=== PATIENT | male | born 1950 | race Caucasian/White ===

== ENCOUNTER 2018-08-06 19:35 | Emergency (ER) | payer MEDICARE ==
[~2018-08-06] VITALS: Ht 188 cm; Wt 118.8 kg
[2018-08-06 20:15] LABS: Calcium, Ionized (POC) 1.13 mmol/L (1.10-1.46); Chloride (POC) 100 mmol/L (98-108); Glucose (ISTAT POC) 97 mg/dL (70-99); Hemoglobin (POC) 13.3 g/dL (13.5-17.5); Sodium (POC) 137 mmol/L (135-148); Total CO2 (POC) 24 mmol/L (21-32)
[2018-08-06] MEDS ORDERED: Lisinopril2.5 MG (20:27)
== END 2018-08-06 20:45 | disposition home or self-care (01) ==
LOC: ER 19:35
PROVIDERS: Physician Assistant
DX: R55 Syncope and collapse (principal)
CPT/HCPCS: 80047; 85014; 93005; 93010; 99284-25

== ENCOUNTER → 2019-08-04 | Outpatient (CLI) | payer MEDICARE ==
[~2019-08-04] MED LIST: Lisinopril2.5 MG
== END | disposition home or self-care (01) ==
LOC: PLD 07:22 → LAB SHORT 07:22
DX: L30.9 Dermatitis, unspecified (principal)
CPT/HCPCS: 88305; 88312

== ENCOUNTER → 2020-02-14 | Outpatient (CLI) | payer MEDICARE | END | disposition home or self-care (01) | LOC: LAB SHORT 13:18 → PLD 13:18 | DX: D04.61 Carcinoma in situ of skin of right upper limb, including shoulder (principal) | CPT/HCPCS: 88305 ==

== ENCOUNTER → 2021-02-11 | Outpatient (CLI) | payer MEDICARE | LOC: LAB SHORT 13:03 → PLD 13:03 | DX: D22.5 Melanocytic nevi of trunk (principal) | CPT/HCPCS: 88305 ==

== ENCOUNTER → 2021-09-10 | Outpatient (CLI) | payer MEDICARE | END | disposition home or self-care (01) | LOC: LAB 15:11 → LAB SHORT 15:11 | DX: L98.8 Other specified disorders of the skin and subcutaneous tissue (principal) | CPT/HCPCS: 88305; 88312 ==

== ENCOUNTER 2024-11-10 17:59 | Inpatient (IN) | payer MEDICARE ==
[~2024-11-10] VITALS: Ht 190.5 cm; Wt 104.0 kg
[~2024-11-10 17:59] MED LIST changes: +ELIQUIS5 M2 PO; -Lisinopril2.5 MG; +Lisinopril2.5 MG PO
[2024-11-10 20:01] LABS: BASOPHILS ABSOLUTE AUTO 0.03 K/mm3 (0.00-0.23); BASOPHILS PERCENT AUTO 0 % (0-2); EOSINOPHILS ABSOLUTE AUTO 0.02 K/mm3 (0.00-0.68); EOSINOPHILS PERCENT AUTO 0 % (0-6); Hematocrit 40.8 % (37.0-53.0); Hemoglobin 14.3 g/dL (13.5-17.5); IMMATURE GRAN ABSOLUTE AUTO 0.06 K/mm3 (0.00-0.10); IMMATURE GRAN PERCENT AUTO 1 % (0-1); LYMPHOCYTES ABSOLUTE AUTO 0.93 K/mm3 (0.84-5.20); LYMPHOCYTES PERCENT AUTO 8 % (21-46); MONOCYTES ABSOLUTE AUTO 0.85 K/mm3 (0.16-1.47); MONOCYTES PERCENT AUTO 7 % (4-13); Mean Corpuscular HGB 31.7 pg (26.0-34.0); Mean Corpuscular Volume 91 fL (80-100); NEUTROPHILS ABSOLUTE AUTO 10.44 K/mm3 (1.96-9.15); NEUTROPHILS PERCENT AUTO 85 % (41-73); Platelet Count 199 K/mm3 (150-400); RDW Coefficient Variation 13.1 % (11.7-14.2); RDW Standard Deviation 43.4 fL (35.1-46.3); Red Blood Cell Count 4.51 M/mm3 (4.30-5.90); White Blood Cell Count 12.33 K/mm3 (4.00-11.30)
[2024-11-10 20:23] LABS: Source, Urine Clean Catch
[2024-11-10 20:23] LABS: Albumin, Blood 3.6 g/dL (3.4-5.0); Albumin/Globulin Ratio 0.8 (0.8-1.8); Bilirubin, Total 0.9 mg/dL (0.1-1.0); Bun/Creatinine Ratio 21.7 (12.0-20.0); Calcium, Blood 9.8 mg/dL (8.5-10.1); Creatinine, Blood 0.78 mg/dL (0.60-1.20); Globulin, Blood 4.4 g/dL (2.2-4.0); Potassium, Blood 4.5 mmol/L (3.5-5.5)
[2024-11-10 20:32] LABS: Appearance, Urine Clear (Clear); Bilirubin, Urine Neg (Neg); Blood, Urine 2+ (Neg); Color, Urine Yellow (P-Yellow); Glucose Qualitative, Urine Neg (Neg); Ketones, Urine 1+ (Neg); Leukocyte Esterase, Urine Neg (Neg); Nitrite, Urine Neg (Neg); Protein, Urine 1+ (Neg); Urobilinogen, Urine NORM (Normal)
[2024-11-10 20:42] LABS: Amorphous Light (0-Heavy); Bacteria Few /hpf; Squamous Epithelial Cells Rare /hpf (Few); White Blood Cells, Urine 0-2 /hpf (0-5)
[2024-11-10 21:36] LABS: International Normalized Ratio 1.06; Prothrombin Time Results 11.3 Sec (9.7-11.5)
[2024-11-10] MEDS ORDERED: Methocarbamol 500 MG Tab PO ONE (22:40)
[2024-11-10] MEDS ORDERED: Ketorolac Tromethamine 15mg Vial IV ONE (22:40)
[2024-11-11 01:12] VITALS: BP 136/80
--- NOTE | 2024-11-11 01:40 | NUR ---
ARRIVAL TO SURGICAL UNIT ROOM 217 AT 0102. PT TRANSFERED VIA SLIDER SHEET. PT TOLERATED WELL, FOLLOWS COMMANDS. PT DROWSY, A/O X3. REPORTS PAIN 5/10 IN RIGHT HIP, STATES IS TOLERABLE. VERBAL CONSENT FROM PT OBTAINED TO SPEAK WITH SCOTT AND GRANDDAUGHTER ALFREDO REGARDING MEDICAL UPDATES. NO IGNITION SOURCES. BELONGINGS AND WALLET SENT HOME WITH FAMILY. GLASSES AT BEDSIDE. PT ORIENTED TO ROOM AND CALL LIGHT. BED ALARM SET FOR SAFETY FAMILY STATES HE TRIED TO GET UP OUT OF BED IN ER. CALL LIGHT IN REACH.
[2024-11-11] MEDS ORDERED: NS 1,000 ML IV SCH (02:00)
[2024-11-11] MEDS ORDERED: Ondansetron HCl 2 MG / ML 2ML Vial IV PRN (02:00)
[2024-11-11] MEDS ORDERED: FentaNYL Citrate 50 MCG/ML 2 ML Injection IV PRN (02:00)
[2024-11-11 03:12] VITALS: BP 134/87
--- NOTE | 2024-11-11 05:58 | NUR ---
SHIFT SUMMARY NOC. PT NEW ADMIT THIS SHIFT. PT HAS RIGHT ACETABULAR FX. PT HAS BEEN NPO SINCE ARRIVAL TO FLOOR. FLUIDS RUNNING PER EMAR. PT REPORTED PAIN UPON ARRIVAL BUT HAS BEEN RESTING WITHOUT COMPLAINTS OF PAIN. PT FIDGITING WITH GOWN AT TIMES. BED ALARM SET FOR SAFETY. PT A/O X2-3, ABLE TO ANSWER SOME QUESTIONS BUT NOT OTHERS. CALL LIGHT IN REACH.
[2024-11-11 07:23] VITALS: BP 138/82
--- NOTE | 2024-11-11 09:53 | NUR ---
"Spiritual Care Consult | Oredered by Dr. Romel Bond MD Pt. had additionally requested a spiritual care visit. Pt. is awake in his bed when he welcomed my visit. Pt. displayed evidence of occassional loss of train of thought. Facilitate a life review, and Pt. verbalizes his life story. 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. Considered matters of corwin and the denominational. As it was difficult for the Pt. maintain a train of though, I cut the visit short. Prayed with the Pt. Pt. verbalized gratitude for the spiritul care visit and shook my hand. With the Pts. permission this geotechnical department manager contacted his denominational by phone to let them know that had been admitted."
[2024-11-11] MEDS ORDERED: TAMS.4ER PO (11:55)
[2024-11-11] MEDS ORDERED: FINA5 PO (11:55)
[2024-11-11] MEDS ORDERED: HYDROcodone 5-APAP 325 TAB PO PRN (12:20)
--- NOTE | 2024-11-11 13:10 | NUR ---
DR. RICHARDS NOTIFIED THAT PT'S HOME MED LIST WAS UPDATED IN THE COMPUTER. REQUESTED PO PAIN MEDICATION, HE PROVIDED AND ORDER FOR ORAL PAIN MEDICATION.
[2024-11-11 15:20] VITALS: BP 113/74
[2024-11-11] MEDS ORDERED: OxyCODONE HCL 5 MG TAB PO PRN (15:40)
[2024-11-11] MEDS ORDERED: Acetaminophen 500 MG Tab PO PRN (15:40)
[2024-11-11] MEDS ORDERED: Docusate Sodium/Senna 1 Tab PO PRN (15:40)
--- NOTE | 2024-11-11 18:46 | NUR ---
SHIFT SUMMARY PT WORKED WITH OCCUPATIONAL THERAPY TODAY, HE WAS ABLE TO STAND AT THE EDGE OF THE BED AND WAS A 2 MAX ASSIST. PT WAS ASSISTED TO SIT ON THE BEDSIDE COMMODE AND REQUIRED A 3 PERSON ASSIST TO GET TO THE COMMODE, PT WAS UNABLE TO PIVOT TRANSFER. PAIN MANAGED WITH PO PAIN MEDICATION. BOWEL CARE STARTED. FAMILY PRESENT AND SUPPORTIVE.
[2024-11-11 19:59] VITALS: BP 106/70
[2024-11-12 03:41] VITALS: BP 138/80
--- NOTE | 2024-11-12 04:44 | NUR ---
SHIFT SUMMARY NO ACUTE CHANGES THROUGHOUT SHIFT. PT APPEARS TO HAVE SLEPT T/O MOST OF NIGHT. DENIES NEED FOR PAIN MEDICATION. A/OX3-4. IS ABLE TO MAKE NEEDS KNOWN. PT CURRENTLY RESTING IN BED WITH EYES CLOSED, CALL LIGHT IN REACH AND BED ALARM ON. RESP EVEN AN UNLABORED. PLAN TO WORK WITH THERAPY TODAY. WILL GIVE REPORT TO ONCOMING RN .
[2024-11-12 05:46] LABS: BASOPHILS ABSOLUTE AUTO 0.04 K/mm3 (0.00-0.23); BASOPHILS PERCENT AUTO 0 % (0-2); EOSINOPHILS ABSOLUTE AUTO 0.23 K/mm3 (0.00-0.68); EOSINOPHILS PERCENT AUTO 2 % (0-6); Hematocrit 38.2 % (37.0-53.0); Hemoglobin 13.2 g/dL (13.5-17.5); IMMATURE GRAN ABSOLUTE AUTO 0.04 K/mm3 (0.00-0.10); IMMATURE GRAN PERCENT AUTO 0 % (0-1); LYMPHOCYTES PERCENT AUTO 14 % (21-46); MONOCYTES ABSOLUTE AUTO 0.67 K/mm3 (0.16-1.47); MONOCYTES PERCENT AUTO 7 % (4-13); Mean Corpuscular HGB 31.1 pg (26.0-34.0); Mean Corpuscular HGB Conc 34.6 g/dL (31.5-36.5); Mean Corpuscular Volume 90 fL (80-100); Mean Platelet Volume 9.3 fL (9.1-12.4); NEUTROPHILS ABSOLUTE AUTO 7.67 K/mm3 (1.96-9.15); NEUTROPHILS PERCENT AUTO 76 % (41-73); Platelet Count 186 K/mm3 (150-400); RDW Coefficient Variation 12.9 % (11.7-14.2); RDW Standard Deviation 42.3 fL (35.1-46.3); Red Blood Cell Count 4.24 M/mm3 (4.30-5.90); White Blood Cell Count 10.05 K/mm3 (4.00-11.30)
[2024-11-12 06:21] LABS: Albumin, Blood 3.1 g/dL (3.4-5.0); Albumin/Globulin Ratio 0.8 (0.8-1.8); Bun/Creatinine Ratio 26.3 (12.0-20.0); Calcium, Blood 8.8 mg/dL (8.5-10.1); Creatinine, Blood 0.65 mg/dL (0.60-1.20); Globulin, Blood 3.9 g/dL (2.2-4.0); Potassium, Blood 3.8 mmol/L (3.5-5.5)
[2024-11-12 07:11] VITALS: BP 141/88
--- NOTE | 2024-11-12 10:28 | NUR ---
MORNING NOTE THIS RN ASSUMED CARE AT APPROX 0715. PATIENT ALERT AND ORIENTED X2-3. IS ABLE TO REPORT NAME/DATE OF , DATE/TIME. VSS. NONSURGICAL R PELVIC FX - PHYSICAL THERAPY EVAL TO BE COMPLETED THIS MORNING. MEDICATED PER EMAR FOR PAIN WITH REPORTED RELIEF. USES URINAL INDEPENDENTLY. CALL LIGHT IN REACH.
[2024-11-12 15:48] VITALS: BP 113/70
--- NOTE | 2024-11-12 17:10 | NUR ---
SHIFT SUMMARY NO ACUTE CHANGES SINCE MORNING NOTE. PATIENT REMAINS ALERT AND ORIENTED X2-3. SLEPT INTERMITTENTLY THROUGHOUT DAY, EASILY AROUSABLE WITH VERBAL STIMULI. VSS. SBP 110s-140s. MAP >65. REMAINS ON ROOM AIR, SATs >90%. RR EVEN, UNLABORED. WORKED WITH PHYSICAL THERAPY - ABLE TO DANGLE AND STAND AT SIDE OF BED WITH 2 PERSON ASSIST FWW GB. UNABLE TO TAKE A STEP TO USE BSC OR SIT IN CHAIR. MANAGING PAIN PER EMAR. USES URINAL INDEPENDENTLY. ATTEMPTED TO USE BEDPAN TODAY FOR BM, UNSUCCESSFUL. MULTIPLE VISITORS AT BEDSIDE THROUGHOUT DAY. CALL LIGHT IN REACH. WILL CONTINUE TO MONITOR AND REPORT TO ONCOMING RN.
[2024-11-12 20:00] VITALS: BP 119/74
[2024-11-12] MEDS ORDERED: Rivaroxaban 2.5 MG TABLET PO SCH (21:00)
[2024-11-13 03:45] VITALS: BP 133/83
--- NOTE | 2024-11-13 04:55 | NUR ---
SHIFT SUMMARY NO ACUTE CHANGES DURING SHIFT. A/0X3, EASILY CONFUSED. PAIN MANAGED PER EMAR, REPOSITIONING AND ICE THERAPY. PT TOLERATING PO INTAKE, DENIES N/V. USING URINAL AND BEDPAN PRN. IV SL. ABLE TO MAKE NEEDS KNOWN. APPEARS TO HAVE RESTED WELL COMFORTABLY T/O NIGHT. PT CURRENTLY RESTING IN BED WITH EYES CLOSED, RESPIRATIONS EVEN/UNLABORED, WITH CALL LIGHT IN REACH. PLAN WORK WITH THERAPY TODAY. WILL GIVE REPORT TO ONCOMING RN.
[2024-11-13 07:19] VITALS: BP 124/83
[2024-11-13] MEDS ORDERED: Finasteride 5 MG Tab PO SCH (09:00)
[2024-11-13] MEDS ORDERED: Lisinopril 5 MG Tab PO SCH (09:00)
[2024-11-13] MEDS ORDERED: Tamsulosin HCl 0.4 MG Cap PO SCH (09:00)
--- NOTE | 2024-11-13 15:32 | NUR ---
SHIFT SUMMARY S/P GLF WITH PELVIS FX, A/O X2-3 WITH CONFUSION THAT VARIED T/O THE SHIFT, PLEASANT AND COOPERATIVE WITH STAFF TODAY, PAINFUL WITH MOVEMENT BUT COMFORTABLE OTHERWISE. NO ACUTE EVENTS THIS SHIFT, CALL LIGHT IN REACH.
[2024-11-13 15:38] VITALS: BP 113/68
[2024-11-13 19:32] VITALS: BP 132/77
[2024-11-14 04:35] VITALS: BP 129/85
--- NOTE | 2024-11-14 06:05 | NUR ---
SHIFT SUMMARY NO ACUTE CHANGES THIS SHIFT. PAIN MANAGED PER EMAR, ICE THERAPY AND REPOSITIONING. PT ABLE TO USE URINAL IND. A/OX3. VSS. NATHALIE PO INTAKE. PT CURRENTLY RESTING IN BED WITH CALL LIGHT IN REACH AND TAB ALARM IN PLACE. PLAN FOR PT WORK WITH THERAPY TODAY. WILL GIVE REPORT TO ONCOMING RN.
[2024-11-14 07:17] VITALS: BP 117/84
--- NOTE | 2024-11-14 12:42 | NUR ---
REPORT TO [facility]
--- NOTE | 2024-11-14 13:03 | NUR ---
DISCHARGE SCRIPT & PACKET SENT. FAMILY & PT AGREEABLE TO DC TO REHAB. ESCORTED OUT VIA TRANSPORT IN .
== END 2024-11-14 12:56 | DRG 536 ==
LOC: ER 17:59 → SURS 23:29
PROVIDERS: Family Medicine; Student in an Organized Health Care Education/Training Program; ADMIT Internal Medicine
DX: S32.491A Other specified fracture of right acetabulum, initial encounter for closed fracture (principal); W06.XXXA Fall from bed, initial encounter; N40.0 Benign prostatic hyperplasia without lower urinary tract symptoms; Z86.718 Personal history of other venous thrombosis and embolism; E86.0 Dehydration; I10 Essential (primary) hypertension; Z79.01 Long term (current) use of anticoagulants; G89.11 Acute pain due to trauma; Z79.899 Other long term (current) drug therapy
CPT/HCPCS: 36415; 70450; 72192; 80053; 81001; 85025; 85610; 85730; 86850; 86900; 86901; 93005; 93010; 96374; 97110; 97162; 97166; 97530; 99285-25; A9270; J1885; J7030